=== PATIENT | female | born 1990 | race Two or more races ===

== ENCOUNTER 2021-04-12 15:52 | Inpatient (IN) | payer OTHER ==
[~2021-04-12] VITALS: Ht 160 cm; Wt 53.1 kg
[2021-04-12] MEDS ORDERED: NALOXONE PREFILLED SYRINGE 2 MG/2 ML SYRINGE ONE (16:25)
[2021-04-12] MEDS ORDERED: NALOXONE HCL 0.4 MG/ML AMPUL ONE (16:26)
[2021-04-12 16:30] LABS: BASOPHILS # (AUTO) 0.1 K/uL (0.0-0.2); BASOPHILS % (AUTO) 0.8 % (0.0-2.0); HEMATOCRIT 35 % (33-45); HEMOGLOBIN 11.3 g/dL (11.5-14.8); MEAN CORPUSCULAR HGB CONC 32 g/dl (31.0-36.0); MEAN CORPUSCULAR VOLUME 91 fL (82-100); MONOCYTES # (AUTO) 0.5 K/uL (0.1-1.30); MONOCYTES % (AUTO) 8.1 % (2.0-12.0); NEUTROPHILS # (AUTO) 3.8 K/uL (1.8-8.9); NEUTROPHILS % (AUTO) 59.1 % (43.0-81.0); PLATELET COUNT (AUTO) 310 K/uL (150-450); RED BLOOD CELL COUNT(AUTO) 3.87 MIL/uL (4.0-5.2); WHITE BLOOD COUNT (AUTO) 6.4 K/uL (4.3-11.0)
[2021-04-12] MEDS ORDERED: NALOXONE HCL 0.4 MG/ML AMPUL IV ONE (16:30)
[2021-04-12] MEDS ORDERED: IV NS 0.9% 1,000 ML BAG IV ONE ×2 (16:30→19:00)
[2021-04-12 16:37] LABS: CALCIUM, SERUM 8.4 mg/dL (8.5-10.1); CARBON DIOXIDE 27 mmol/L (21-32); CHLORIDE 109 mmol/L (98-107); CREATININE 0.8 mg/dL (0.6-1.3); GLUCOSE 73 mg/dL (74-106); POTASSIUM 3.8 mmol/L (3.5-5.1); SODIUM SERUM 144 mmol/L (136-145); UREA NITROGEN, BLOOD 15 mg/dL (7-18)
[2021-04-12 16:45] LABS: BILIRUBIN,URINE SMALL (NEGATIVE); COLOR,URINE YELLOW (YELLOW); LEUKOCYTE ESTERASE ,URINE Negative (NEGATIVE); NITRITE, URINE Positive (NEGATIVE); PROTEIN,URINE Negative (NEGATIVE); UGLUCOSE Negative (NEGATIVE); UROBILINOGEN,URINE 0.2 EU/dL (0.2)
[2021-04-12 16:55] LABS: ALANINE AMINOTRANSFERASE 31 U/L (12-78); ALBUMIN 3.4 g/dL (3.4-5.0); ALKALINE PHOSPHATASE 91 U/L (46-116); ASPARTATE AMINOTRANSFERASE 31 U/L (15-37); BILIRUBIN,DIRECT 0.2 mg/dL (0.0-0.2); BILIRUBIN,TOTAL 0.7 mg/dL (0.2-1.0)
[2021-04-12 16:56] LABS: ACETAMINOPHEN < 2 ug/ml (10-30); ALCOHOL, BLOOD < 3 mg/dL (0-0)
[2021-04-12 16:58] LABS: BACTERIA,URINE 4+ /HPF (None Seen); RBC,URINE 0-2 /HPF (0-2); SQUAMOUS EPITHELIAL CELL,UR Few /HPF (None Seen); URINE AMORPHOUS URATE Few /HPF (None Seen); WBC,URINE 0-2 /HPF (0-3)
[2021-04-12] MEDS ORDERED: CEFTRIAXONE 1GM BAG (ER ONLY) 50 ML IV ONE (18:25)
[2021-04-12] MEDS ORDERED: CEFTRIAXONE 1GM BAG (ER ONLY) 1 GM/50 ML PIGGYBACK IV ONE (18:30)
[2021-04-12] MEDS ORDERED: ACETAMINOPHEN 325 MG TABLET PO PRN (20:30)
[2021-04-12] MEDS ORDERED: MAG HYDROX/AL HYDROX/SIMETH 30 ML UDC PO PRN (20:30)
[2021-04-12] MEDS ORDERED: Z GUARD REMEDY 2 OZ OINT TP PRN (20:30)
[2021-04-12] MEDS ORDERED: ONDANSETRON HCL/PF 4 MG/2 ML VIAL IVP PRN (20:30)
[2021-04-12] MEDS ORDERED: IV NS 0.9% 1,000 ML IV PRN (20:30)
[2021-04-12] MEDS ORDERED: HYDROCODONE/APAP 5/325MG TABLET PO PRN (20:30)
[2021-04-12] MEDS ORDERED: MAGNESIUM HYDROXIDE 30 ML UDC PO PRN (20:30)
[2021-04-13] MEDS: IV D5/ 0.9% NACL 1,000 ML IV PRN ×2 (02:00→19:27)
[2021-04-13] MEDS: Thiamine 100 MG in IV D5W 50 ML IV SCH ×2 (05:00→23:32)
[2021-04-13 05:05] LABS: BASOPHILS % (AUTO) 0.5 % (0.0-2.0); CALCIUM, SERUM 7.4 mg/dL (8.5-10.1); CREATININE 0.7 mg/dL (0.6-1.3); EOSINOPHILS % (AUTO) 0.9 % (0.0-6.0); HEMATOCRIT 28 % (33-45); HEMOGLOBIN 9.3 g/dL (11.5-14.8); LYMPHOCYTES % (AUTO) 45.7 % (20.0-44.0); MAGNESIUM 2.1 mg/dL (1.8-2.4); MEAN CORPUSCULAR HGB CONC 33 g/dl (31.0-36.0); MEAN CORPUSCULAR VOLUME 91 fL (82-100); MONOCYTES # (AUTO) 0.5 K/uL (0.1-1.30); MONOCYTES % (AUTO) 7.4 % (2.0-12.0); NEUTROPHILS % (AUTO) 45.5 % (43.0-81.0); PHOSPHORUS 3.3 mg/dL (2.5-4.9); PLATELET COUNT (AUTO) 250 K/uL (150-450); POTASSIUM 3.4 mmol/L (3.5-5.1); RED BLOOD CELL COUNT(AUTO) 3.12 MIL/uL (4.0-5.2); WHITE BLOOD COUNT (AUTO) 6.7 K/uL (4.3-11.0)
[2021-04-13 05:15] LABS: THYROID STIMULATING HORMONE 0.229 uIU/mL (0.358-3.74)
[2021-04-13] MEDS ORDERED: Thiamine 100 MG/ML VIAL ONE (05:34)
[2021-04-13] MEDS ORDERED: Folic acid 1 MG in IV D5W 50 ML IV SCH (07:00)
[2021-04-13] MEDS: PANTOPRAZOLE 40 MG TABLET.DR PO SCH (08:30)
[2021-04-13] MEDS ORDERED: PANTOPRAZOLE 40 MG TABLET.DR PO ONE (08:59)
[2021-04-13] MEDS ORDERED: POTASSIUM CL. PREMIX PERIPHER. 50 ML ONE ×2 (11:12→12:08)
[2021-04-13] MEDS: POTASSIUM CL. PREMIX PERIPHER. 50 ML IV SCH ×2 (11:19→12:11)
[2021-04-13 18:24] LABS: HEMOGLOBIN 10.2 g/dL (11.5-14.8)
[2021-04-13] MEDS: CEFTRIAXONE 1 G in IV D5W 50 ML IV SCH (19:27)
[2021-04-13 20:00] VITALS: BP 93/42
[2021-04-14] MEDS: IV D5/ 0.9% NACL 1,000 ML IV PRN (05:38)
[2021-04-14] MEDS: THIAMINE HCL 100 MG TABLET PO SCH (08:42)
[2021-04-14] MEDS: FOLIC ACID 1 MG TABLET PO SCH (08:42)
[2021-04-14] MEDS: PANTOPRAZOLE 40 MG TABLET.DR PO SCH (08:42)
[2021-04-14] MEDS ORDERED: IV NS 0.9% 1,000 ML IV ONE (09:00)
[2021-04-14] MEDS: CEFTRIAXONE 1 G in IV D5W 50 ML IV SCH (17:49)
[2021-04-14 20:00] VITALS: BP 82/52
[2021-04-15] MEDS: IV D5/ 0.9% NACL 1,000 ML IV PRN ×2 (04:51→18:39)
[2021-04-15 08:00] VITALS: BP 91/62
[2021-04-15] MEDS: FOLIC ACID 1 MG TABLET PO SCH (08:02)
[2021-04-15] MEDS: THIAMINE HCL 100 MG TABLET PO SCH (08:02)
[2021-04-15] MEDS: PANTOPRAZOLE 40 MG TABLET.DR PO SCH (08:02)
[2021-04-15] MEDS: NITROFURANTOIN/NITROFURAN MONOHYDRATE 100 MG CAPSULE PO SCH ×2 (09:18→20:36)
[2021-04-15 12:34] LABS: CALCIUM, SERUM 8.2 mg/dL (8.5-10.1); CREATININE 0.7 mg/dL (0.6-1.3); POTASSIUM 3.9 mmol/L (3.5-5.1)
[2021-04-15 12:52] LABS: ALBUMIN 2.8 g/dL (3.4-5.0); BILIRUBIN,TOTAL 0.2 mg/dL (0.2-1.0); TOTAL PROTEIN, SERUM 6.3 g/dL (6.4-8.2)
[2021-04-15] MEDS: CEFTRIAXONE 1 G in IV D5W 50 ML IV SCH (17:38)
[2021-04-16 07:19] LABS: BASOPHILS # (AUTO) 0.1 K/uL (0.0-0.2); BASOPHILS % (AUTO) 0.6 % (0.0-2.0); EOSINOPHILS % (AUTO) 1.3 % (0.0-6.0); HEMATOCRIT 38 % (33-45); HEMOGLOBIN 12.3 g/dL (11.5-14.8); LYMPHOCYTES # (AUTO) 2.5 K/uL (0.8-4.8); LYMPHOCYTES % (AUTO) 27.9 % (20.0-44.0); MEAN CORPUSCULAR HGB CONC 32 g/dl (31.0-36.0); MEAN CORPUSCULAR VOLUME 92 fL (82-100); MONOCYTES # (AUTO) 0.5 K/uL (0.1-1.30); MONOCYTES % (AUTO) 6.1 % (2.0-12.0); NEUTROPHILS # (AUTO) 5.6 K/uL (1.8-8.9); NEUTROPHILS % (AUTO) 64.1 % (43.0-81.0); PLATELET COUNT (AUTO) 291 K/uL (150-450); RED BLOOD CELL COUNT(AUTO) 4.13 MIL/uL (4.0-5.2); WHITE BLOOD COUNT (AUTO) 8.8 K/uL (4.3-11.0)
[2021-04-16] MEDS: PANTOPRAZOLE 40 MG TABLET.DR PO SCH (07:59)
[2021-04-16 08:00] VITALS: BP 100/51
[2021-04-16] MEDS: NITROFURANTOIN/NITROFURAN MONOHYDRATE 100 MG CAPSULE PO SCH (08:23)
[2021-04-16] MEDS: FOLIC ACID 1 MG TABLET PO SCH (08:23)
[2021-04-16] MEDS: THIAMINE HCL 100 MG TABLET PO SCH (08:23)
[2021-04-16 08:54] LABS: CALCIUM, SERUM 8.2 mg/dL (8.5-10.1); CREATININE 0.8 mg/dL (0.6-1.3); MAGNESIUM 1.6 mg/dL (1.8-2.4); POTASSIUM 3.9 mmol/L (3.5-5.1)
[2021-04-16] MEDS ORDERED: MUPIROCIN OINT 2% 22 GM TUBE NS SCH (15:00)
[2021-04-16 16:00] VITALS: BP 107/63
[2021-04-16] MEDS: CEFTRIAXONE 1 G in IV D5W 50 ML IV SCH ×2 (17:01→17:04)
== END 2021-04-16 22:30 | disposition home or self-care (01) | DRG 812 ==
LOC: ER 15:59 → EDBD 15:59 → TRANSITION 04-13 05:01 → TELE1 04-13 17:47 → MEDSG1 04-13 18:51
PROVIDERS: ATTEND Internal Medicine
DX: T50.901A Poisoning by unspecified drugs, medicaments and biological substances, accidental (unintentional), initial encounter (principal); G92.8 Other toxic encephalopathy; F19.90 Other psychoactive substance use, unspecified, uncomplicated; Y92.89 Other specified places as the place of occurrence of the external cause; J34.1 Cyst and mucocele of nose and nasal sinus; Z59.00 Homelessness unspecified; T51.91XA Toxic effect of unspecified alcohol, accidental (unintentional), initial encounter; R82.5 Elevated urine levels of drugs, medicaments and biological substances
CPT/HCPCS: 36415; 70450-TC; 71045-TC; 72125-TC; 80048-TC; 80053-TC; 80076-TC; 81001; 82550-TC; 82962-TC; 83605-TC; 83735-TC; 84100-TC; 84439-TC; 84443-TC; 84481; 84702-TC; 85025-TC; 85027-TC; 87040-TC; 87081-TC; 87086-TC; 87186-TC; C9803; G0378; G0480; J0696; J2310; J2405; J3411; J3480; J3490; J7030; J7042; J7060; U0003